=== PATIENT | female | born 1985 | race Caucasian/White ===

== ENCOUNTER 2018-04-15 14:11 | Emergency (ER) | payer MEDICAID ==
[~2018-04-15] VITALS: Ht 162.6 cm; Wt 71.4 kg
[2018-04-15 14:14] VITALS: Ht 162.6 cm; Wt 71.4 kg
[2018-04-15] MEDS ORDERED: BIRTH CONTROL (14:16)
[2018-04-15 14:37] LABS: APPEARANCE CLEAR (CLEAR); BILIRUBIN NEGATIVE (NEGATIVE); COLOR YELLOW (YELLOW); GLUCOSE NEGATIVE (NEGATIVE); KETONE NEGATIVE (NEGATIVE); NITRITE NEGATIVE (NEGATIVE); PROTEIN NEGATIVE (NEGATIVE); UROBILINOGEN NORMAL (NORMAL)
[2018-04-15 14:38] LABS: BASOPHILS 0.4 % (0-2); HEMOGLOBIN 12.5 g/dL (12-16); IMMATURE GRANULOCYTES 0.1 % (0-5); LYMPHOCYTES 28.4 % (15-50); MCH 31.3 pg (26.0-34.0); MCHC 33.8 g/dL (31.0-37.0); MCV 92.7 fL (80.0-100.0); MEAN PLATELET VOLUME 10.4 fL (7.4-10.4); MONOCYTES 9.1 % (2-11); PLATELET COUNT 225 10x3/uL (130-400); RBC 3.99 10x6/uL (4.00-5.40); WBC 7.3 10x3/uL (4.8-10.8)
[2018-04-15 15:01] LABS: ALBUMIN 3.5 g/dL (3.4-5.0); ALKALINE PHOSPHATASE 28 U/L (46-116); ALT (SGPT) 21 U/L (10-68); BILIRUBIN - TOTAL 0.31 mg/dL (0.2-1.3); CALC OSMOLALITY 277 mosm/kg (275-300); CALCIUM 8.3 mg/dL (8.5-10.1); CARBON DIOXIDE 25.7 mmol/L (21.0-32.0); CHLORIDE - SERUM 104 mmol/L (98-107); CREATININE - SERUM 0.8 mg/dL (0.6-1.3); GLUCOSE 87 mg/dL (74-106); PROTEIN - SERUM 6.9 g/dL (6.4-8.2); SODIUM 139 mmol/L (136-145); UREA NITROGEN 16 mg/dL (7-18); eGFR NON AFRICAN AMERICAN 87 mL/min (90-120)
[2018-04-15] MEDS ORDERED: BENTYL 20 MG TA20 MG PO (17:12)
[2018-04-15] MEDS ORDERED: ZOFRAN ODT4 MG/UDTAB PO (17:12)
[2018-04-15 17:33] VITALS: BP 150/84
[2018-04-15 19:11] LABS: HCG URINE NEGATIVE (NEGATIVE)
== END 2018-04-15 17:34 | disposition home or self-care (01) ==
LOC: D.ER 14:11
PROVIDERS: Family Medicine
DX: A08.4 Viral intestinal infection, unspecified (principal)